=== PATIENT | male | born 1960 | race African-American/Black ===

== ENCOUNTER 2017-02-28 19:37 | Emergency (ER) | payer MEDICAID ==
[~2017-02-28] VITALS: Ht 172.7 cm; Wt 73.0 kg
[~2017-02-28 19:37] MED LIST: ALBU18HF2 IH; ASPIRIN; AZITHROMYCIN; CYCL5TAB PO; D-ME118S13 PO; GABA-531 PO; GUAI600T PO; HCTZ; LEVO500T15 PO; LOSA1TAB34 PO; MOME13HF2 INH; MOTRIN; P50 PO; TIOT18CA3 IH
[2017-02-28 19:52] VITALS: BP 160/93
== END 2017-02-28 22:25 | disposition left against medical advice (07) ==
LOC: ER 19:37
DX: N50.89 Other specified disorders of the male genital organs (principal); M79.672 Pain in left foot; Z53.21 Procedure and treatment not carried out due to patient leaving prior to being seen by health care provider

== ENCOUNTER 2017-03-27 00:30 | Emergency (ER) | payer MEDICAID ==
[~2017-03-27] VITALS: Ht 170.2 cm; Wt 72.5 kg
[2017-03-27] MEDS ORDERED: SODIUM CHLORIDE 0.9% 1,000 ML IV ONE (03:49)
[2017-03-27] MEDS ORDERED: ALBUTEROL (0.083%) 2.5MG/3ML NEB HHN STA (03:49)
[2017-03-27] MEDS ORDERED: IPRATROPIUM BROMIDE (0.02%) 0.5MG/2.5ML NEB HHN STA (03:49)
[2017-03-27] MEDS ORDERED: HYDROCODONE/ACETAMINOPHEN 5/325MG TABLET PO ONE (04:00)
[2017-03-27 04:07] LABS: HEMATOCRIT. 39.9 % (42.0-52.0); MEAN CORPUSCULAR HEMOGLOBIN 22.9 pg (28.0-32.0); MEAN CORPUSCULAR VOLUME 70.3 fL (80.0-94.0); MEAN PLATELET VOLUME 8.1 fl (7.4-10.4); PLATELET 353 x1000/uL (130-400); RED BLOOD CELL COUNT 5.68 mill/uL (4.7-6.1)
[2017-03-27 04:14] LABS: INR 1.1; PROTHROMBIN TIME 11.4 sec
[2017-03-27 04:23] LABS: CARBON DIOXIDE 28 mEq/L (21-32); CHLORIDE 109 mEq/L (98-107)
[2017-03-27 06:09] VITALS: BP 143/92
[2017-03-27 06:47] LABS: ATYPICAL LYMPHOCYTES 5
[2017-03-27 06:48] LABS: PLATELET ESTIMATE NORMAL
== END 2017-03-27 06:28 | disposition home or self-care (01) ==
LOC: ER 00:30
DX: N50.89 Other specified disorders of the male genital organs (principal); J44.9 Chronic obstructive pulmonary disease, unspecified; J45.909 Unspecified asthma, uncomplicated; D64.9 Anemia, unspecified
CPT/HCPCS: 36415; 76870; 80053; 85025; 85610; 93976; 94640; 96360; 96361; 99285; J7030; J7611; Z7610

== ENCOUNTER 2017-04-24 07:07 | Emergency (ER) | payer MEDICAID ==
[~2017-04-24] VITALS: Ht 172.7 cm; Wt 74.0 kg
[~2017-04-24 07:07] MED LIST changes: +AZIT1PAC7 PO; -AZITHROMYCIN; -LEVO500T15 PO; +METH4TAB3 PO; -MOTRIN; -P50 PO
[2017-04-24] MEDS ORDERED: ALBUTEROL (0.083%) 2.5MG/3ML NEB HHN STA (08:04)
[2017-04-24] MEDS ORDERED: PREDNISONE 20MG TABLET PO STA (08:04)
[2017-04-24] MEDS ORDERED: IPRATROPIUM BROMIDE (0.02%) 0.5MG/2.5ML NEB HHN STA (08:04)
[2017-04-24] MEDS ORDERED: IPRATROPIUM/ALBUTEROL 0.5-3(2.5)MG/3ML NEB HHN ONE (11:00)
[2017-04-24 11:29] LABS: HEMATOCRIT. 40.2 % (42.0-52.0); MEAN CORPUSCULAR HEMOGLOBIN 22.6 pg (28.0-32.0); MEAN CORPUSCULAR VOLUME 70.3 fL (80.0-94.0); MEAN PLATELET VOLUME 7.6 fl (7.4-10.4); PLATELET 254 x1000/uL (130-400); RED BLOOD CELL COUNT 5.72 mill/uL (4.7-6.1); RED CELL DISTRIBUTION WIDTH 14.5 % (11.6-14.6)
[2017-04-24 11:32] LABS: CHLORIDE 104 mEq/L (98-107)
[2017-04-24 11:43] LABS: CARBON DIOXIDE 32 mEq/L (21-32)
[2017-04-24 11:45] LABS: TROPONIN I < 0.02 ng/mL (0.00-0.04)
[2017-04-24 12:17] LABS: PLATELET ESTIMATE NORMAL
[2017-04-24 13:10] VITALS: BP 156/104
== END 2017-04-24 13:11 | disposition home or self-care (01) ==
LOC: ER 10:42
DX: J44.1 Chronic obstructive pulmonary disease with (acute) exacerbation (principal); E11.9 Type 2 diabetes mellitus without complications; I10 Essential (primary) hypertension
CPT/HCPCS: 36415; 71020; 80048; 84484; 85025; 93005; 94640; 99285; J7512; J7611; Z7610; J7620

== ENCOUNTER 2018-06-11 20:58 | Inpatient (IN) | payer MEDICAID ==
[~2018-06-11] VITALS: Ht 170.2 cm; Wt 70.3 kg
[~2018-06-11 20:58] MED LIST changes: +ASCO-456 PO; +CHOL500010 PO; -CYCL5TAB PO; -D-ME118S13 PO; +FERR325T6 PO; +FLOV11 INH; +GUAI-735 PO; -GUAI600T PO; +GUAI600T26 PO; -HCTZ; +IBUP-2321 PO; +OMEP20CA10 PO
[2018-06-11] MEDS ORDERED: SODIUM CHLORIDE 0.9% 1,000 ML IV ONE (21:16)
[2018-06-11] MEDS ORDERED: IPRATROPIUM/ALBUTEROL 0.5-3(2.5)MG/3ML NEB HHN ONE ×2 (21:30→22:30)
[2018-06-11] MEDS ORDERED: METHYLPREDNISOLONE SOD SUCC 125 MG/2 ML VIAL IV ONE (21:30)
[2018-06-11 22:03] LABS: HEMOGLOBIN. 14.3 g/dL (14.0-18.0); MEAN CORPUSCULAR HEMOGLOBIN 23.2 pg (28.0-32.0); MEAN CORPUSCULAR VOLUME 71.3 fL (80.0-94.0); MEAN PLATELET VOLUME 7.7 fl (7.4-10.4); PLATELET 203 x1000/uL (130-400); RED BLOOD CELL COUNT 6.17 mill/uL (4.7-6.1); RED CELL DISTRIBUTION WIDTH 14.9 % (11.6-14.6)
[2018-06-11 22:07] LABS: CHLORIDE 106 mEq/L (98-107); INR 1.1; PROTHROMBIN TIME 10.7 sec (9.1-11.1)
[2018-06-11 22:39] LABS: PLATELET ESTIMATE NORMAL
[2018-06-12 03:25] VITALS: BP 128/86
[2018-06-12 04:01] VITALS: BP 128/86
[2018-06-12] MEDS ORDERED: IPRATROPIUM/ALBUTEROL 0.5-3(2.5)MG/3ML NEB HHN PRN (06:45)
[2018-06-12] MEDS ORDERED: MORPHINE SULFATE 4 MG/ML CPJ (NOT FOR IM USE) IV PRN (06:45)
[2018-06-12] MEDS ORDERED: GUAIFENESIN/CODEINE 100-10MG/5ML UDC PO PRN (07:15)
[2018-06-12 08:00] VITALS: BP 128/79
[2018-06-12] MEDS: BUDESONIDE 0.5MG/2ML NEB HHN SCH ×2 (08:50→20:44)
[2018-06-12] MEDS: IPRATROPIUM/ALBUTEROL 0.5-3(2.5)MG/3ML NEB HHN SCH ×4 (08:50→20:44)
[2018-06-12] MEDS ORDERED: MEDICATION NOT ON FORMULARY EA (Losartan/Hydrochlorothiazide (Losartan-Hctz 50-12.5 Mg T PO SCH (09:00)
[2018-06-12] MEDS ORDERED: MEDICATION NOT ON FORMULARY EA (Gabapentin 1 CAP) PO SCH (09:00)
[2018-06-12] MEDS ORDERED: [UNRECOGNIZED DRUG - OTHER] INH SCH (09:00)
[2018-06-12] MEDS ORDERED: MOMETASONE INH SCH (09:00)
[2018-06-12] MEDS ORDERED: GUAIFENESIN 200 MG PO SCH (09:00)
[2018-06-12] MEDS ORDERED: FORMOTEROL INH SCH (09:00)
[2018-06-12] MEDS: ENOXAPARIN 40MG/0.4ML SYR SUBCUT SCH (09:11)
[2018-06-12] MEDS: METHYLPREDNISOLONE SOD SUCC 40 MG/ML VIAL IV SCH ×2 (09:11→16:53)
[2018-06-12] MEDS: GUAIFENESIN 200MG/10ML SUGAR FREE UDC PO SCH ×2 (09:11→16:53)
[2018-06-12] MEDS: OMEPRAZOLE 20MG CAPSULE EXTENDED RELEASE PO SCH (09:12)
[2018-06-12] MEDS: LOSARTAN POTASSIUM 50 MG TABLET PO SCH (09:12)
[2018-06-12] MEDS: GABAPENTIN 300MG CAPSULE PO SCH ×3 (09:12→16:53)
[2018-06-12] MEDS: HYDROCHLOROTHIAZIDE 12.5MG CAPSULE PO SCH (09:12)
[2018-06-12] MEDS: LEVOFLOXACIN 500MG PREMIX 100 ML IV SCH (09:13)
[2018-06-12 09:36] LABS: BASOPHILS % 0.3 % (0.0-2.0); EOSINOPHILS % 0.1 % (0.0-5.0); HEMATOCRIT. 41.6 % (42.0-52.0); HEMOGLOBIN. 13.5 g/dL (14.0-18.0); LYMPHOCYTES % 11.2 % (20.0-50.0); MEAN CORPUSCULAR HEMOGLOBIN 23.1 pg (28.0-32.0); MEAN PLATELET VOLUME 8.1 fl (7.4-10.4); MONOCYTES % 2.7 % (2.0-8.0); NEUTROPHILS % 85.7 % (40.0-76.0); PLATELET 211 x1000/uL (130-400); RED BLOOD CELL COUNT 5.86 mill/uL (4.7-6.1); RED CELL DISTRIBUTION WIDTH 14.6 % (11.6-14.6)
[2018-06-12 09:55] LABS: CHLORIDE 104 mEq/L (98-107)
[2018-06-12 12:00] VITALS: BP 134/79
[2018-06-12 14:20] LABS: BG BASE EXCESS 0.5 mmol/L (-2.0-2.0); BG CARBOXYHEMOGLOBIN 0.7 % (0.5-1.5); BG DEOXYHEMOGLOBIN 6.1 % (0.0-5.0); BG FRACTION INSPIRED OXYGEN 21; BG HCO3 ACT 24.5 mmol/L (22.0-26.0); BG METHEMOGLOBIN 0.2 % (0.0-1.5); BG OXYGEN SATURATION 93.8 % (92.0-98.5); BG PCO2 37.7 mmHg (35.0-45.0); BG PH 7.431 (7.350-7.450); BG PO2 68.1 mmHg (75.0-100.0); BG SAMPLE SITE RIGHT RADIAL; BG TOTAL HEMOGLOBIN 14.4 g/dL (12.0-18.0); BG VENT MODE ROOM AIR
[2018-06-12 15:48] VITALS: BP 129/73
[2018-06-12] MEDS: MONTELUKAST SODIUM 10MG TABLET PO SCH (16:53)
[2018-06-12 20:00] VITALS: BP 132/76
[2018-06-13] VITALS: BP 121/80
[2018-06-13] MEDS: METHYLPREDNISOLONE SOD SUCC 40 MG/ML VIAL IV SCH ×3 (00:22→16:16)
[2018-06-13] MEDS: IPRATROPIUM/ALBUTEROL 0.5-3(2.5)MG/3ML NEB HHN SCH ×5 (00:50→21:30)
[2018-06-13 05:00] VITALS: BP 114/72
[2018-06-13] MEDS: OMEPRAZOLE 20MG CAPSULE EXTENDED RELEASE PO SCH (06:14)
[2018-06-13] MEDS: BUDESONIDE 0.5MG/2ML NEB HHN SCH ×2 (07:59→21:28)
[2018-06-13 08:00] VITALS: BP 116/75
[2018-06-13] MEDS: LOSARTAN POTASSIUM 50 MG TABLET PO SCH (08:56)
[2018-06-13] MEDS: LEVOFLOXACIN 500MG PREMIX 100 ML IV SCH (08:56)
[2018-06-13] MEDS: GUAIFENESIN 200MG/10ML SUGAR FREE UDC PO SCH ×2 (08:56→16:16)
[2018-06-13] MEDS: GABAPENTIN 300MG CAPSULE PO SCH ×3 (08:56→16:16)
[2018-06-13] MEDS: ENOXAPARIN 40MG/0.4ML SYR SUBCUT SCH (08:56)
[2018-06-13] MEDS: HYDROCHLOROTHIAZIDE 12.5MG CAPSULE PO SCH (08:56)
[2018-06-13 12:00] VITALS: BP 116/75
[2018-06-13 16:00] VITALS: BP 137/91
[2018-06-13] MEDS: MONTELUKAST SODIUM 10MG TABLET PO SCH (16:16)
[2018-06-13 20:00] VITALS: BP 122/88
[2018-06-14] VITALS: BP 119/79
[2018-06-14] MEDS: IPRATROPIUM/ALBUTEROL 0.5-3(2.5)MG/3ML NEB HHN SCH ×4 (00:49→10:57)
[2018-06-14] MEDS: METHYLPREDNISOLONE SOD SUCC 40 MG/ML VIAL IV SCH ×2 (01:08→08:34)
[2018-06-14 04:00] VITALS: BP 131/77
[2018-06-14] MEDS: OMEPRAZOLE 20MG CAPSULE EXTENDED RELEASE PO SCH (06:30)
[2018-06-14] MEDS: BUDESONIDE 0.5MG/2ML NEB HHN SCH (07:58)
[2018-06-14 08:00] VITALS: BP 122/78
[2018-06-14] MEDS: LEVOFLOXACIN 500MG PREMIX 100 ML IV SCH (08:34)
[2018-06-14] MEDS: ENOXAPARIN 40MG/0.4ML SYR SUBCUT SCH (08:34)
[2018-06-14] MEDS: GUAIFENESIN 200MG/10ML SUGAR FREE UDC PO SCH (08:35)
[2018-06-14] MEDS: GABAPENTIN 300MG CAPSULE PO SCH (08:35)
[2018-06-14] MEDS: HYDROCHLOROTHIAZIDE 12.5MG CAPSULE PO SCH (08:35)
[2018-06-14] MEDS: LOSARTAN POTASSIUM 50 MG TABLET PO SCH (08:35)
[2018-06-14 12:00] VITALS: BP 136/80
[2018-06-14 12:51] VITALS: BP 136/80
== END 2018-06-14 14:35 | disposition home or self-care (01) | DRG 140 ==
LOC: ER 20:58 → 5WST 06-12 01:05 → ENRESERV 06-12 01:33
PROVIDERS: ADMIT Internal Medicine; ATTEND Internal Medicine
DX: J44.1 Chronic obstructive pulmonary disease with (acute) exacerbation (principal); J96.00 Acute respiratory failure, unspecified whether with hypoxia or hypercapnia; I10 Essential (primary) hypertension; J45.901 Unspecified asthma with (acute) exacerbation; Z87.891 Personal history of nicotine dependence; Z79.899 Other long term (current) drug therapy; Z79.82 Long term (current) use of aspirin
CPT/HCPCS: 36415; 36600; 71045; 80048; 80053; 82375; 82805; 83036; 83880; 84484; 85025; 85610; 93005; 94640; 96361; 96365; 96372; 96375; 99285; J1650; J1956; J2920; J2930; J7030; J7050; J7620; J7626

== ENCOUNTER 2018-07-04 02:09 | Emergency (ER) | payer MEDICAID ==
[~2018-07-04] VITALS: Ht 172.7 cm; Wt 70.0 kg
[~2018-07-04 02:09] MED LIST changes: -AZIT1PAC7 PO
[2018-07-04] MEDS ORDERED: IPRATROPIUM BROMIDE (0.02%) 0.5MG/2.5ML NEB HHN STA (03:49)
[2018-07-04] MEDS ORDERED: ALBUTEROL (0.083%) 2.5MG/3ML NEB HHN STA (03:49)
[2018-07-04] MEDS ORDERED: PREDNISONE 20MG TABLET PO STA (03:49)
[2018-07-04 05:39] VITALS: BP 125/85
== END 2018-07-04 05:42 | disposition home or self-care (01) ==
LOC: ER 02:24
DX: J44.1 Chronic obstructive pulmonary disease with (acute) exacerbation (principal); I45.10 Unspecified right bundle-branch block; R03.0 Elevated blood-pressure reading, without diagnosis of hypertension; Z79.899 Other long term (current) drug therapy; Z79.51 Long term (current) use of inhaled steroids
CPT/HCPCS: 93005; 94640; 99284; J7512; J7611

== ENCOUNTER 2018-07-29 18:31 | Emergency (ER) | payer MEDICAID ==
[~2018-07-29] VITALS: Ht 175.3 cm; Wt 75.0 kg
[2018-07-29] MEDS ORDERED: ALBUTEROL (0.083%) 2.5MG/3ML NEB HHN STA (19:04)
[2018-07-29] MEDS ORDERED: IPRATROPIUM BROMIDE (0.02%) 0.5MG/2.5ML NEB HHN STA (19:04)
[2018-07-29] MEDS ORDERED: METHYLPREDNISOLONE SOD SUCC 125 MG/2 ML VIAL IV STA (19:04)
[2018-07-29] MEDS ORDERED: VISCOUS LIDOCAINE 2% 15 ML UDC PO STA (19:52)
[2018-07-29] MEDS ORDERED: ACETAMINOPHEN 325MG TABLET PO STA (19:52)
[2018-07-29 19:54] LABS: BASOPHILS % 0.5 % (0.0-2.0); EOSINOPHILS % 8.4 % (0.0-5.0); HEMATOCRIT. 40.9 % (42.0-52.0); HEMOGLOBIN. 13.3 g/dL (14.0-18.0); LYMPHOCYTES % 18.5 % (20.0-50.0); MEAN CORPUSCULAR HEMOGLOBIN 23.5 pg (28.0-32.0); MEAN PLATELET VOLUME 7.8 fl (7.4-10.4); MONOCYTES % 8.4 % (2.0-8.0); NEUTROPHILS % 64.2 % (40.0-76.0); PLATELET 251 x1000/uL (130-400); RED BLOOD CELL COUNT 5.67 mill/uL (4.7-6.1); RED CELL DISTRIBUTION WIDTH 15.7 % (11.6-14.6)
[2018-07-29 19:56] LABS: CHLORIDE 103 mEq/L (98-107)
[2018-07-29 21:55] VITALS: BP 133/91
== END 2018-07-29 21:56 | disposition home or self-care (01) ==
LOC: ER 18:31
DX: J44.1 Chronic obstructive pulmonary disease with (acute) exacerbation (principal); I10 Essential (primary) hypertension; Z79.82 Long term (current) use of aspirin; Z79.899 Other long term (current) drug therapy
CPT/HCPCS: 36415; 71045; 80053; 83880; 84484; 85025; 93005; 94640; 96374; 99285; J2930; J7611; Z7610

== ENCOUNTER 2018-08-08 08:02 | Inpatient (IN) | payer MEDICAID ==
[~2018-08-08] VITALS: Ht 170.2 cm; Wt 64.7 kg
[2018-08-08] MEDS ORDERED: SODIUM CHLORIDE 0.9% 1,000 ML IV ONE (08:36)
[2018-08-08] MEDS ORDERED: ALBUTEROL (0.083%) 2.5MG/3ML NEB HHN STA (08:36)
[2018-08-08] MEDS ORDERED: METHYLPREDNISOLONE SOD SUCC 125 MG/2 ML VIAL IV STA (08:36)
[2018-08-08] MEDS ORDERED: IPRATROPIUM BROMIDE (0.02%) 0.5MG/2.5ML NEB HHN STA (08:36)
[2018-08-08] MEDS ORDERED: MAGNESIUM 2 G PREMIX 50 ML IV STA (08:36)
[2018-08-08 09:12] LABS: BASOPHILS % 0.7 % (0.0-2.0); EOSINOPHILS % 14.8 % (0.0-5.0); HEMATOCRIT. 41.6 % (42.0-52.0); HEMOGLOBIN. 13.4 g/dL (14.0-18.0); LYMPHOCYTES % 26.1 % (20.0-50.0); MEAN CORPUSCULAR HEMOGLOBIN 23.6 pg (28.0-32.0); MEAN CORPUSCULAR VOLUME 73.3 fL (80.0-94.0); MEAN PLATELET VOLUME 8.6 fl (7.4-10.4); MONOCYTES % 10.9 % (2.0-8.0); NEUTROPHILS % 47.5 % (40.0-76.0); PLATELET 248 x1000/uL (130-400); RED BLOOD CELL COUNT 5.67 mill/uL (4.7-6.1); RED CELL DISTRIBUTION WIDTH 16.1 % (11.6-14.6)
[2018-08-08 09:22] LABS: PARTIAL THROMBOPLASTIN TIME 26.6 sec (23.4-31.0); PROTHROMBIN TIME 10.3 sec (9.1-11.1)
[2018-08-08 09:25] LABS: CHLORIDE 103 mEq/L (98-107)
[2018-08-08 09:57] LABS: CLARITY URINE CLEAR (CLEAR); COLOR URINE YELLOW (YELLOW); KETONES URINE NEGATIVE (NEGATIVE); LEUKOCYTE ESTERASE URINE NEGATIVE (NEGATIVE); NITRITE URINE NEGATIVE (NEGATIVE); OCCULT BLOOD URINE NEGATIVE (NEGATIVE); PROTEIN URINE NEGATIVE (NEGATIVE); SPECIFIC GRAVITY URINE 1.004 (1.005-1.030); UROBILINOGEN URINE 0.2 E.U./dL (0.2-1.0)
[2018-08-08 10:19] LABS: *AMPHETAMINES SCREEN URINE NEGATIVE (NEGATIVE); *BARBITURATES SCREEN URINE NEGATIVE (NEGATIVE); *BENZODIAZEPINES SCREEN URINE NEGATIVE (NEGATIVE); *COCAINE SCREEN URINE NEGATIVE (NEGATIVE); OPIATES URINE SCREEN NEGATIVE (NEGATIVE)
[2018-08-08 10:20] LABS: CANNABINOID URINE SCREEN NEGATIVE (NEGATIVE); METHADONE URINE SCREEN NEGATIVE (NEGATIVE); PHENCYCLIDINE URINE SCREEN NEGATIVE (NEGATIVE)
[2018-08-08] MEDS ORDERED: LEVOFLOXACIN 500MG PREMIX 100 ML IV ONE ×2 (10:45→12:00)
[2018-08-08 11:09] LABS: BG BASE EXCESS 1.7 mmol/L (-2.0-2.0); BG BILEVEL POS AIRWAY PRESSURE 15/5; BG CARBOXYHEMOGLOBIN 0.8 % (0.5-1.5); BG DEOXYHEMOGLOBIN 1.1 % (0.0-5.0); BG FRACTION INSPIRED OXYGEN 40; BG HCO3 ACT 27.4 mmol/L (22.0-26.0); BG METHEMOGLOBIN 0.4 % (0.0-1.5); BG OXYGEN SATURATION 98.9 % (92.0-98.5); BG OXYHEMOGLOBIN 97.7 % (94.0-97.0); BG PCO2 47.2 mmHg (35.0-45.0); BG PH 7.381 (7.350-7.450); BG SAMPLE SITE RIGHT RADIAL; BG TOTAL HEMOGLOBIN 13.6 g/dL (12.0-18.0); BG VENT MODE MASK - BIPAP; BG VENT RATE 16 set
[2018-08-08 13:50] VITALS: BP 140/99
[2018-08-08] MEDS ORDERED: IPRATROPIUM/ALBUTEROL 0.5-3(2.5)MG/3ML NEB INH PRN (15:15)
[2018-08-08] MEDS ORDERED: CLONIDINE 0.1MG TABLET PO PRN (15:15)
[2018-08-08] MEDS ORDERED: ACETAMINOPHEN 325MG TABLET PO PRN (15:15)
[2018-08-08] MEDS ORDERED: ONDANSETRON HCL 4MG/2ML INJ IV PRN (15:15)
[2018-08-08 16:00] VITALS: BP 135/79
[2018-08-08] MEDS: IPRATROPIUM/ALBUTEROL 0.5-3(2.5)MG/3ML NEB HHN SCH ×2 (16:00→20:12)
[2018-08-08] MEDS: LOSARTAN POTASSIUM 50 MG TABLET PO SCH (17:00)
[2018-08-08] MEDS: METHYLPREDNISOLONE SOD SUCC 40 MG/ML VIAL IV SCH (17:51)
[2018-08-08] MEDS: ENOXAPARIN 40MG/0.4ML SYR SUBCUT SCH (17:52)
[2018-08-08] MEDS: HYDROCHLOROTHIAZIDE 25MG TABLET PO SCH (17:53)
[2018-08-08 18:00] VITALS: BP 90/69
[2018-08-08 20:00] VITALS: BP 114/65
[2018-08-08] MEDS: GABAPENTIN 300MG CAPSULE PO SCH (20:58)
[2018-08-08 22:00] VITALS: BP 116/76
[2018-08-08 23:20] LABS: CREATINE KINASE 131 IU/L (39-308); CREATINE KINASE MB FRACTION 3.1 ng/mL (0.5-3.6)
[2018-08-09] VITALS (12 sets, daily range): BP systolic 108–146; BP diastolic 67–86
[2018-08-09] MEDS: METHYLPREDNISOLONE SOD SUCC 40 MG/ML VIAL IV SCH ×3 (00:16→16:13)
[2018-08-09] MEDS: IPRATROPIUM/ALBUTEROL 0.5-3(2.5)MG/3ML NEB HHN SCH ×6 (00:33→20:32)
[2018-08-09] MEDS: GABAPENTIN 300MG CAPSULE PO SCH ×3 (05:22→22:11)
[2018-08-09 07:08] LABS: HEMATOCRIT. 41.3 % (42.0-52.0); HEMOGLOBIN. 13.3 g/dL (14.0-18.0); MEAN CORPUSCULAR HEMOGLOBIN 23.5 pg (28.0-32.0); MEAN PLATELET VOLUME 7.9 fl (7.4-10.4); PLATELET 248 x1000/uL (130-400); RED BLOOD CELL COUNT 5.65 mill/uL (4.7-6.1); RED CELL DISTRIBUTION WIDTH 15.9 % (11.6-14.6)
[2018-08-09 07:42] LABS: CHLORIDE 102 mEq/L (98-107)
[2018-08-09 07:42] LABS: BG CARBOXYHEMOGLOBIN 0.7 % (0.5-1.5); BG DEOXYHEMOGLOBIN 10.2 % (0.0-5.0); BG FRACTION INSPIRED OXYGEN 28; BG HCO3 ACT 27.8 mmol/L (22.0-26.0); BG METHEMOGLOBIN 0.4 % (0.0-1.5); BG OXYGEN SATURATION 89.7 % (92.0-98.5); BG OXYHEMOGLOBIN 88.7 % (94.0-97.0); BG PCO2 38.9 mmHg (35.0-45.0); BG PH 7.472 (7.350-7.450); BG PO2 51.1 mmHg (75.0-100.0); BG SAMPLE SITE LEFT RADIAL; BG TOTAL HEMOGLOBIN 14.7 g/dL (12.0-18.0); BG VENT MODE NASAL CANNULA
[2018-08-09 07:56] LABS: CREATINE KINASE 94 IU/L (39-308); CREATINE KINASE MB FRACTION 2.4 ng/mL (0.5-3.6)
[2018-08-09] MEDS: HYDROCHLOROTHIAZIDE 25MG TABLET PO SCH (08:01)
[2018-08-09] MEDS: LOSARTAN POTASSIUM 50 MG TABLET PO SCH (08:01)
[2018-08-09] MEDS: LEVOFLOXACIN 500MG PREMIX 100 ML IV SCH (12:03)
[2018-08-09 13:53] LABS: PLATELET ESTIMATE NORMAL
[2018-08-09] MEDS: ENOXAPARIN 40MG/0.4ML SYR SUBCUT SCH (16:13)
[2018-08-10] VITALS (10 sets, daily range): BP systolic 111–138; BP diastolic 69–92
[2018-08-10] MEDS: IPRATROPIUM/ALBUTEROL 0.5-3(2.5)MG/3ML NEB HHN SCH ×5 (00:25→16:29)
[2018-08-10] MEDS: METHYLPREDNISOLONE SOD SUCC 40 MG/ML VIAL IV SCH ×3 (00:50→16:11)
[2018-08-10] MEDS: GABAPENTIN 300MG CAPSULE PO SCH ×2 (05:43→13:45)
[2018-08-10] MEDS: HYDROCHLOROTHIAZIDE 25MG TABLET PO SCH (08:31)
[2018-08-10] MEDS: LOSARTAN POTASSIUM 50 MG TABLET PO SCH (08:32)
[2018-08-10] MEDS: LEVOFLOXACIN 500MG PREMIX 100 ML IV SCH (11:39)
[2018-08-10] MEDS: ENOXAPARIN 40MG/0.4ML SYR SUBCUT SCH (16:11)
== END 2018-08-10 18:30 | disposition home or self-care (01) | DRG 140 ==
LOC: ER 08:02 → 3WST 11:08 → EDBEDREQTM 11:12 → EDBEDREQ 11:12 → ENRESERV 12:39
PROVIDERS: ADMIT Internal Medicine; ATTEND Internal Medicine
PROC: 5A09357 Assistance with Respiratory Ventilation, Less than 24 Consecutive Hours, Continuous Positive Airway Pressure (ICD-10-PCS; principal; 2018-08-08)
PROC: 5A09357 Assistance with Respiratory Ventilation, Less than 24 Consecutive Hours, Continuous Positive Airway Pressure (ICD-10-PCS; 2018-08-09)
DX: J44.1 Chronic obstructive pulmonary disease with (acute) exacerbation (principal); J96.01 Acute respiratory failure with hypoxia; F17.200 Nicotine dependence, unspecified, uncomplicated; I10 Essential (primary) hypertension
CPT/HCPCS: 36415; 36600; 71045; 80048; 80053; 80305; 81003; 82375; 82550; 82553; 82805; 83605; 83880; 84145; 84484; 85025; 85610; 85730; 87040; 87086; 93005; 93970; 94640; 94660; 96365; 96366; 96375; 99291; J1650; J1956; J2920; J2930; J3475; J7030; J7050; J7611; J7620